=== PATIENT | male | born 2000 | race African-American/Black ===

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

== ENCOUNTER 2022-07-10 06:48 | Emergency (ER) | payer OTHER ==
[2022-07-10] MEDS ORDERED: Dexamethasone 10 MG/ML VIAL ONE (08:03)
[2022-07-10] MEDS ORDERED: Boostrix 0.5 ML (Tdap) VIAL (>/=7 yrs of age) ONE (08:04)
== END 2022-07-10 08:20 | disposition home or self-care (01) ==
LOC: MADERS 06:48
DX: J06.9 Acute upper respiratory infection, unspecified (principal); F17.290 Nicotine dependence, other tobacco product, uncomplicated; Z20.822 Contact with and (suspected) exposure to COVID-19
CPT/HCPCS: 87081; 87430; 87804; 90715; 96372; 99283; J1100; U0003; U0005

== ENCOUNTER 2023-03-20 21:53 | Emergency (ER) | payer OTHER ==
[2023-03-20] MEDS ORDERED: predniSONE 20 MG TAB ONE (22:12)
[2023-03-20] MEDS ORDERED: Ibuprofen 800 MG TAB ONE (22:12)
== END 2023-03-20 22:20 | disposition home or self-care (01) ==
LOC: MADERS 21:53
DX: R51.9 Headache, unspecified (principal); F17.290 Nicotine dependence, other tobacco product, uncomplicated
CPT/HCPCS: 99283; J7512

== ENCOUNTER 2023-07-02 06:35 | Emergency (ER) | payer OTHER, SELFPAY ==
[2023-07-02] MEDS ORDERED: Dicyclomine 10 MG CAP ONE (08:18)
[2023-07-02] MEDS ORDERED: Ondansetron ODT 4 MG TAB ONE (08:18)
== END 2023-07-02 08:20 | disposition home or self-care (01) ==
LOC: MADERS 06:35
DX: R11.2 Nausea with vomiting, unspecified (principal); F17.290 Nicotine dependence, other tobacco product, uncomplicated
CPT/HCPCS: 99283; Q0162

== ENCOUNTER 2023-11-30 15:56 | Emergency (ER) | payer OTHER, SELFPAY ==
[2023-11-30] MEDS ORDERED: Lidocaine 1% PF 5 ML VIAL ONE (16:19)
[2023-11-30] MEDS ORDERED: Boostrix 0.5 ML (Tdap) VIAL (>/=7 yrs of age) ONE (16:41)
== END 2023-11-30 16:49 | disposition home or self-care (01) ==
LOC: MADERS 15:56
DX: S01.81XA Laceration without foreign body of other part of head, initial encounter (principal); F17.290 Nicotine dependence, other tobacco product, uncomplicated; Z23 Encounter for immunization; W26.9XXA Contact with unspecified sharp object(s), initial encounter
CPT/HCPCS: 12011; 90471; 90715